=== PATIENT | female | born 1985 ===

== ENCOUNTER 2018-06-11 12:18 | Inpatient (IN) | payer MEDICAID ==
[2018-06-11 12:29] VITALS: O2SAT 100
[2018-06-11] MEDS ORDERED: DiphenhydrAMINE 50 mg/ml Inj IM PRN (13:19)
[2018-06-11] MEDS ORDERED: Alum-Mag Hydrox-Simethicone Susp (30 mL) PO PRN (13:19)
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
--- NOTE | 2018-06-11 16:41 | CP.PCM.CON ---
History of Present Illness - History of Present Illness History of Present Illness: 32 y/o female with PMH ADHD , depression on Lexapro and aderall brought to psych unit with worsening depression and suicidal attempt . History obtained from patient . As per patient she was laid off work 3 months ago and her psychiatri st started her on Lexapro for symptoms of depression. She had an argument with her mother and uncle 3 days and got so upset that she took 5 pills of Advil. She texted her friend who called 911 and patient was admitted to [facility] and now transferred for psych admission . At presentyt she is feeling well, Denies any suicidal thoughts or ideation . Denies any chest pain , SOB, palpitations, PND, orthopnea, urinary symptoms or changes in bowel movements,nausea, vomiting , weight loss or gain. 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 , single , not sexually active ROS ; 10 point review of system negative except above Code status : full Review of Systems - Review of Systems All systems: reviewed and no additional remarkable complaints except Past Patient History - Infectious Disease Hx of Infectious Diseases: None - Tetanus Immunizations Tetanus Immunization: Unknown - Past Medical History & Family History Past Medical History?: Yes Past Family History: Reviewed and not pertinent - Past Social History Smoking Status: Never Smoked Chewing Tobacco Use: No Cigar Use: No Alcohol: Social Drugs: Cannabis Home Situation {Lives}: With Family - CARDIAC Hx Cardiac Disorders: No - PULMONARY Hx Respiratory Disorders: No - NEUROLOGICAL Hx Neurological Disorder: No - HEENT Hx HEENT Problems: No - RENAL Hx Chronic Kidney Disease: No - ENDOCRINE/METABOLIC Hx Endocrine Disorders: No - HEMATOLOGICAL/ONCOLOGICAL Hx Blood Disorders: No - INTEGUMENTARY Hx Dermatological Problems: No - MUSCULOSKELETAL/RHEUMATOLOGICAL Hx Musculoskeletal Disorders: No - GASTROINTESTINAL Hx Gastrointestinal Disorders: No - GENITOURINARY/GYNECOLOGICAL Hx Genitourinary Disorders: No - PSYCHIATRIC Hx Substance Use: No - SURGICAL HISTORY Hx Surgeries: No - ANESTHESIA Hx Anesthesia: No Meds Allergies/Adverse Reactions: Allergies Allergy/AdvReac Type Severity Reaction Status Date / Time No Known Allergies Allergy Verified 06/11/18 12:26 - Medications Medications: Current Medications Acetaminophen (Tylenol 325mg Tab) 650 mg PO Q4 PRN PRN Reason: Pain, moderate (4-7) Al Hydrox/Mg Hydrox/Simethicone (Maalox Plus 30 Ml) 30 ml PO Q4 PRN PRN Reason: Dyspepsia Bupropion HCl (Wellbutrin) 75 mg PO DAILY COLEEN Diphenhydramine HCl (Benadryl) 50 mg IM Q6 PRN PRN Reason: Extrapyramidal S/S Unable PO Diphenhydramine HCl (Benadryl) 50 mg PO Q6 PRN PRN Reason: Extrapyramidal Symptoms Escitalopram Oxalate (Lexapro) 5 mg PO HS COLEEN Haloperidol (Haldol) 5 mg PO Q6 PRN PRN Reason: Agitation Haloperidol Lactate (Haldol) 5 mg IM Q6 PRN PRN Reason: Agitation, Unable to Take PO Trazodone HCl (Desyrel) 50 mg PO HS COLEEN Physical Exam - Constitutional Appears: Non-toxic, No Acute Distress - Head Exam Head Exam: ATRAUMATIC, NORMAL INSPECTION, NORMOCEPHALIC - Eye Exam Eye Exam: EOMI, Normal appearance, PERRL Pupil Exam: NORMAL ACCOMODATION - ENT Exam ENT Exam: Mucous Membranes Moist, Normal Exam - Neck Exam Neck exam: Positive for: Full Rom, Normal Inspection - Respiratory Exam Respiratory Exam: Clear to Auscultation Bilateral, NORMAL BREATHING PATTERN. absent: Rales, Rhonchi, Wheezes - Cardiovascular Exam Cardiovascular Exam: REGULAR RHYTHM, RRR, +S1, +S2. absent: JVD - GI/Abdominal Exam GI & Abdominal Exam: Normal Bowel Sounds, Soft. absent: Distended, Guarding, Rebound, Tenderness - Rectal Exam Rectal Exam: Deferred - Extremities Exam Extremities exam: Positive for: normal capillary refill, normal inspection, pe yo pulses present. Negative for: calf tenderness, pedal edema - Back Exam Back exam: NORMAL INSPECTION - Neurological Exam Neurological exam: Alert, CN II-XII Intact, Oriented x3, Reflexes Normal - Psychiatric Exam Psychiatric exam: Normal Affect, Normal Mood - Skin Skin Exam: Dry, Intact, Normal Color, Warm Results - Vital Signs Recent Vital Signs: Last Vital Signs Temp 98.7 F 06/11/18 12:20 Pulse 86 06/11/18 12:20 Resp 18 06/11/18 12:20 BP 133/98 H 06/11/18 12:20 Pulse Ox 100 06/11/18 12:20 Assessment & Plan - Assessment and Plan (Free Text) Assessment: 32 y/o female with PMH ADHD , depression on Lexapro and aderall brought to psych unit with worsening depression and suicidal attempt . 1. Depression management as per psych Check TSH 2.ADHD resume Aderall
[2018-06-12 08:41] LABS: BASO % 0.6 % (0.0-2.0); EOS % 0.8 % (0.0-4.0); HEMOGLOBIN 14.1 g/dL (12.0-16.0); LYMPH # 1.6 K/uL (1.0-4.3); LYMPH % 34.4 % (20.0-40.0); MEAN CELL VOLUME 93.9 fl (81.0-99.0); MEAN CORPUSCULAR HEMOGLOBIN 32.9 pg (27.0-31.0); MEAN CORPUSCULAR HGB CONC 35.1 g/dL (33.0-37.0); MEAN PLATELET VOLUME 7.2 fl (7.2-11.7); MONO # 0.4 K/uL (0.0-0.8); MONO % 9.1 % (0.0-10.0); NEUT # 2.6 K/uL (1.8-7.0); NEUT % 55.1 % (50.0-75.0); NRBC % 0.1 % (0.0-0.0); RBC 4.28 Mil/uL (3.80-5.20); RED CELL DISTRIBUTION WIDTH 13.4 % (11.5-14.5); WHITE BLOOD COUNT 4.8 K/uL (4.8-10.8)
[2018-06-12 09:02] LABS: ALB/GLOB RATIO 1.2 (1.0-2.1); ALBUMIN 4.4 g/dL (3.5-5.0); ALT/SGPT 38 U/L (9-52); AST/SGOT 26 U/L (14-36); BLOOD UREA NITROGEN 11 mg/dl (7-17); CALCIUM 9.7 mg/dL (8.4-10.2); GFR NON-AFRICAN AMERICAN > 60; HDL CHOLESTEROL 84 MG/DL (30-70)
[2018-06-12 09:23] LABS: LDL CHOLESTEROL 95 mg/dL (0-129)
--- NOTE | 2018-06-12 12:56 | PCM.PYCHPN ---
Psychiatric Progress Note - Psychiatric Progress Note Patient seen today, length of contact: pt evaluated discussed with team chart reviewed Patient Chief Complaint: I am glad my mother visited and I shared my feelings with her Problems Identified/Issues Discussed: pt evaluated, reported feeling less depressed after a meeting with her mother, stated she understands the need to be in therapy on discharge, CBT provided discussed with pt alternative coping skills with stress other than self harm, motivational therapy provided in reference to cannabis use discussed to continue wellbutrin pt reported drowsiness with trazodone, will discontinue encouraged to attend groups pt denied any current thoughts of self harm Medical Problems: no hx of previous hospitalizations DSM 5 Symptoms Update: major depression recurrent cannabis use disorder Medication Change: Yes (discontinue trazodone) Medical Record Reviewed: Yes Mental Status Examination - Cognitive Function Orientation: Person, Place, Situation Memory: Intact Attention: WNL Concentration: WNL Association: WNL Fund of Knowledge: WNL - Mood Mood: Depressed, Anxious - Affect Affect: Constricted - Formal Thought Process Formal Thought Process: No Impairment - Suicidal Ideation Suicidal Ideation: No - Homicidal Ideation Homicidal Ideation: No Goal/Treatment Plan - Goal/Treatment Plan Need for Continued Stay: Severe depression anxiety, Discharge may exacerbated symptoms Progress Toward Problem(s) and Goals/Treatment Plan: wellbutrin 75mg increase gradually start lexapro 5mg and discontinue gradually discontinue trazodone 50mg qhs start benadryl 25mg qhs cbt group and supportive therapy
[2018-06-13] MEDS ORDERED: Bismuth Subsalicylate 262 mg Chew Tab PO PRN (13:47)
[2018-06-13] MEDS: Bismuth Subsalicylate 262 mg Chew Tab PO PRN ×2 (14:42→16:12)
--- NOTE | 2018-06-13 14:47 | PCM.PYCHPN ---
Psychiatric Progress Note - Psychiatric Progress Note Patient seen today, length of contact: pt evaluated discussed with team chart reviewed Patient Chief Complaint: I feel better but I still have problem sleeping Problems Identified/Issues Discussed: pt evaluated, reported poor sleep with early insomnia, reported better mood , no reported side effects of wellbutrin, discussed increasing dose pt agreed to start outpatient therapy on discharge, able to verbalize coping skills with stress other than self harm, pt denied any current suicidal or homicidal thoughts denied perceptual disturbances Medical Problems: no hx of previous hospitalizations DSM 5 Symptoms Update: depression adjustment disorder with depressed mood cannabis use disorder Medication Change: Yes (increase wellbutrin) Medical Record Reviewed: Yes Mental Status Examination - Cognitive Function Orientation: Person, Place, Situation Memory: Intact Attention: WNL Concentration: WNL Association: WNL Fund of Knowledge: WNL - Mood Mood: Depressed, Anxious - Affect Affect: Constricted - Formal Thought Process Formal Thought Process: No Impairment - Suicidal Ideation Suicidal Ideation: No - Homicidal Ideation Homicidal Ideation: No Goal/Treatment Plan - Goal/Treatment Plan Need for Continued Stay: Severe depression anxiety, Discharge may exacerbated symptoms Progress Toward Problem(s) and Goals/Treatment Plan: increase wellbutrin sr 150mg discontinue lexapro increase benadryl 50mg qhs cbt group and supportive therapy
[2018-06-14] MEDS: buPROPion SR 150 MG TABLET PO SCH (08:54)
[2018-06-14 09:27] VITALS: RESP 18
--- NOTE | 2018-06-14 13:29 | PCM.PYCHPN ---
Psychiatric Progress Note - Psychiatric Progress Note Patient seen today, length of contact: pt evaluated discussed with team chart reviewed Patient Chief Complaint: I feel better with wellbutrin Problems Identified/Issues Discussed: pt evaluated, reported improved mood and level of energy with wellbutrin, no reported side effects, pt motivated to start therapy on discharge pt denied any current suicidal or homicidal thoughts denied perceptual disturbances Medical Problems: no hx of previous hospitalizations DSM 5 Symptoms Update: depression Medication Change: No (increase wellbutrin) Medical Record Reviewed: Yes Mental Status Examination - Cognitive Function Orientation: Person, Place, Situation Memory: Intact Attention: WNL Concentration: WNL Association: WNL Fund of Knowledge: WNL - Mood Mood: Anxious - Affect Affect: Constricted - Speech Speech: Appropriate - Formal Thought Process Formal Thought Process: No Impairment - Suicidal Ideation Suicidal Ideation: No - Homicidal Ideation Homicidal Ideation: No Goal/Treatment Plan - Goal/Treatment Plan Need for Continued Stay: Severe depression anxiety, Discharge may exacerbated symptoms Progress Toward Problem(s) and Goals/Treatment Plan: continue wellbutrin sr 150mg benadryl 50mg qhs cbt group and supportive therapy
[2018-06-15] MEDS: buPROPion SR 150 MG TABLET PO SCH (08:33)
[2018-06-15 11:24] VITALS: BP 149/85; PULSE 96; TEMP 96.8
--- NOTE | 2018-06-15 15:38 | PCM.PYCHDC ---
Mental Status Examination - Mental Status Examination Orientation: Person, Place, Situation, Time Memory: Intact Mood: Neutral Affect: Broad Speech: Appropriate Attention: WNL Concentration: WNL Association: WNL Fund of Knowledge: WNL Formal Thought Process: No Impairment Description of patient's judgement and insight: good insight and judgment Psychotic Thoughts and Behaviors: pt denied psychotic symptoms, non elicited Suicidal Ideation: No Current Homicidal Ideation?: No Discharge Summary - Discharge Note Reason for Hospitalization: pt is 32ys old female with previous diagnosis of depression, brought to ER after suicide attempt by overdose pt was diagnosed with depression one year ago in the context of loosing her job and having to provide care for her father who has history of dementia, pt always had conflicting relation with her father, pt reported depressed mood anhedonia, low energy amotivation and poor sleep, was placed on lexapro 10mg by private psychiatrist with partial response on day of evaluation pt was in libertarian with mother and she was having a conflict with her uncle, resulting in mother humiliating her , pt started having suicidal ideation, overdosed on pills in her car and texted a friend on the unit reports feeling anxious and depressed, passive suicidal ideation no plan denied perceptual disturbances, denied homicidal ideation Consultations:: List each consultation separately and include: 1. Reason for request. 2. Findings. 3. Follow-up Summary of Hospital Course include:: 1. Description of specific treatment plan utilized for patients during their course of treatmen. 2. Summarize the time- course for resolution of acute symptoms and/or regressed behaviors. 3. Describe issues identified and worked on during hospitalization. 4. Describe medication utilized. 5. Describe medical problems identified and treated. 6. Reassessment of suicide risk Summary of Hospital Course: pt on admission presented with depressed mood and affect, low energy and poor concentration lexapro was discontinued gradually, pt was starte on wellbutrin , it was increased gradually to 150mg motivational therapy was provided in reference to cannabis use pt was provided with CBT group and supportive therapy pt was compliant with treatment, attended groups, no reported side effects of medications on discharge mental status was stable , pt denied any current suicidal or homicidal ideations, denied thoughts of self harm - Diagnosis (1) Depression Status: Acute - Final Diagnosis (DSM 5) Condition upon Discharge: GOOD DSM 5: adjustment disorder with depressed mood major depression recurrent cannabis use disorder Disposition: HOME/ ROUTINE Follow-up Treatment Plan: [facility] Prescriptions/Medication Reconciliation: buPROPion SR [Wellbutrin SR 150 MG] 150 mg PO DAILY 30 Days #30 tab - Antipsychotic Medications Pt discharged on 2 or more routine antipsychotic medications: No
== END 2018-06-15 13:36 | disposition home or self-care (01) | DRG 885 ==
LOC: H.ER 12:18 → H.PSYCH 12:26
PROVIDERS: ADMIT Psychiatry & Neurology Psychiatry; ATTEND Psychiatry & Neurology Psychiatry
PROC: GZHZZZZ Group Psychotherapy (ICD-10-PCS; principal; 2018-06-11)
PROC: GZ58ZZZ Individual Psychotherapy, Cognitive-Behavioral (ICD-10-PCS; 2018-06-11)
DX: F33.9 Major depressive disorder, recurrent, unspecified (principal); F43.21 Adjustment disorder with depressed mood; F12.90 Cannabis use, unspecified, uncomplicated; F90.9 Attention-deficit hyperactivity disorder, unspecified type; Z91.5 Personal history of self-harm; Z79.899 Other long term (current) drug therapy